=== PATIENT | female | born 1970 | race Caucasian/White ===

== ENCOUNTER 2018-09-21 06:05 | Day surgery (SDC) | payer OTHER ==
[~2018-09-21] VITALS: Ht 152.4 cm; Wt 64.4 kg
[~2018-09-21 06:05] MED LIST: ALEV1TAB PO; ALEV220C2 PO; LR 1,000 ML IV ONE
[2018-09-21] MEDS ORDERED: MIDAZOLAM INJ 2 MG/2 ML VIAL (J2250) As Ordered ONE (06:58)
[2018-09-21] MEDS ORDERED: fentaNYL 100 MCG/2 ML INJECTION (J3010) As Ordered ONE ×2 (06:58→07:15)
[2018-09-21] MEDS ORDERED: BUPIVACAINE HCL 0.25% 30 ML VIAL As Ordered ONE (07:05)
[2018-09-21] MEDS: MIDAZOLAM INJ 2 MG/2 ML VIAL (J2250) IV SCH ×2 (07:13→07:29)
[2018-09-21] MEDS: fentaNYL 100 MCG/2 ML INJECTION (J3010) IV SCH ×2 (07:13→07:29)
[2018-09-21] MEDS ORDERED: LIDOCAINE 1% MDV 20ML VIAL As Ordered ONE (07:14)
[2018-09-21] MEDS ORDERED: METOCLOPRAMIDE INJ 10MG/2ML VIAL (J2765) As Ordered ONE ×2 (07:15→09:38)
[2018-09-21] MEDS ORDERED: LIDOCAINE 2% INJ 100 MG/5 ML SDV (FOR ANES.) As Ordered ONE (07:15)
[2018-09-21] MEDS ORDERED: ONDANSETRON 4MG/2ML VIAL (J2405) As Ordered ONE (07:15)
[2018-09-21] MEDS ORDERED: EPINEPHrine 1MG/ML INJ 30ML MD-VIAL As Ordered ONE (07:15)
[2018-09-21] MEDS ORDERED: PROPOFOL 200 MG/20 ML VIAL As Ordered ONE (07:15)
[2018-09-21] MEDS ORDERED: ROCURONIUM BROMIDE 50 MG/5 ML VIAL As Ordered ONE (07:15)
[2018-09-21] MEDS ORDERED: fentaNYL 100 MCG/2 ML INJECTION (J3010) IV ONE (07:45)
[2018-09-21] MEDS ORDERED: MIDAZOLAM INJ 2 MG/2 ML VIAL (J2250) IV ONE (07:45)
[2018-09-21] MEDS ORDERED: fentaNYL 100 MCG/2 ML INJECTION (J3010) IV PRN (09:30)
[2018-09-21] MEDS ORDERED: ACETAMINOPHEN TAB 650MG DOSE (2X325MG) PO PRN (09:30)
[2018-09-21] MEDS ORDERED: LR 1,000 ML IV SCH (09:30)
[2018-09-21] MEDS ORDERED: PERCOCET 5MG/325MG TAB PO PRN (09:45)
[2018-09-21] MEDS ORDERED: ONDANSETRON 4MG/2ML VIAL (J2405) IV PRN (09:45)
[2018-09-21] MEDS ORDERED: MORPHINE 4 MG/ML 1ML VIAL/SYRINGE (J2270) IV PRN (09:45)
[2018-09-21] MEDS ORDERED: METOCLOPRAMIDE INJ 10MG/2ML VIAL (J2765) IV SCH (10:00)
--- NOTE | 2018-09-21 11:04 | RO ---
DATE OF PROCEDURE: 09/21/2018 PREOPERATIVE DIAGNOSIS: Right shoulder bursitis plus calcific tendinitis. POSTOPERATIVE DIAGNOSIS: Right shoulder bursitis plus calcific tendinitis. PLANNED PROCEDURE: Right shoulder arthroscopy, subacromial decompression and debridement of calcific deposits. PROCEDURE PERFORMED: Right shoulder arthroscopy, subacromial decompression and debridement of calcific deposits. SURGEON: Marc Fabian MD ENERGY PROJECTS LEAD: Penny Najera PA-C ANESTHESIA: Block plus general anesthetic. JOURNEYMAN SHEET METAL WORKER: Dr. Toledo PREOPERATIVE PREAMBLE: This 47-year-old female had tried a number of nonoperative therapies including physiotherapy, strengthening, oral antiinflammatories and subacromial injection. She did derive a little bit of relief from the subacromial injection, but this went away, and so we discussed the pros, cons, risks, and benefits of proceeding with arthroscopic surgery. She wanted to go ahead and I had examined her in the preanesthetic unit. She still had full range of motion and good strength, but remained painful along the lateral aspect of her arm. I marked the arm preoperatively and the patient had a block. OPERATIVE PREAMBLE: The patient was brought to the operating room theater, placed supine on the beach chair table positioner. General anesthesia was induced. 2 grams of IV Ancef was administered prior to the start of the case. They were set up at a 45 degree angle. The right upper extremity was prepped and draped in the usual sterile fashion with the aid of a Spider arm positioner. This was allowed to thoroughly dry for 3 minutes. A preoperative time out was performed. The surgical site was positively identified and the patient identified as well. I started by infiltrating about 6 mL in the posterolateral aspect of the shoulder. Posterolateral portal was established. Scope was introduced intra-articularly. I performed a full diagnostic arthroscopy. Cartilage on the glenoid and humeral head appeared normal. No cartilage defects and no fraying. The labrum was normal. Biceps was intact. Root appeared stable. No synovitis in the biceps tendon. Subscapularis appeared normal. No evidence of partial thickness tearing. It was stable to probing. No obvious undersurface tear of the cuff or fraying. Did have a fairly lateral insertion on the humeral head. No obvious intra-articular synovitis. Next, the scope was withdrawn and placed in the subacromial space. The pump pressure was at 50 mm of mercury throughout and each bag did have epinephrine in it. The subacromial space was positively identified and a lateral portal made. The intra-articular portion of the scope did include one anterior portal placed just below the biceps tendon root in the rotator interval. Once I positively identified the subacromial space and made the lateral portal, I then performed a thorough debridement of quite a bit of marked synovitis and bursitis. The subacromial space was quite inflamed. I debrided the undersurface of the anterolateral acromion and identified the acromioclavicular (AC) joint. No obvious evidence of AC joint arthrosis or instability. I used a shaving instrument plus electrocautery. I performed thorough debridement. There was an anterolateral spur of the acromion and so I used a bur to debride that down to a flat surface, approximately a breadths width of about 5-6 mm so that it was parallel with the undersurface of the lateral clavicle. I achieved meticulous hemostasis. I examined the entire rotator cuff all the way down to the lateral gutter and posteriorly. I visualized from posterolateral as well as lateral. There was one small area probably 5 mm x 7 mm where there was some calcified deposits within the infraspinatus/teres minor. I debrided those cautiously. I ensured that I did not cause any cuff tear, but there was some areas to debride. I probed the entire cuff to make sure that there was no partial thickness or full thickness tears. It appeared normal. I examined the coracoacromial (CA) ligament and it was definitely frayed so I removed this with cautery and then shaved away the stump to ensure no impingement. I then thoroughly irrigated the rest of the shoulder and confirmed that again there was no cuff tear and that all of the calcified deposits had been removed. The scope was withdrawn. The wound were closed with subcutaneous #3-0 Monocryl. The wounds were dressed with Steri-Strips, 4 x 8 gauze, and ABD with cloth tape dressing. The patient was placed into an abduction pillow sling. The patient was woken from general anesthetic and transferred off of the operating room table, later transferred to postanesthesia care unit (PACU) in stable condition. All sponge counts, needle counts, instrument counts were correct. There were no complications or excess blood loss associated with the procedure. Plan for the patient is to be discharged home according to day surgery criteria. I will follow them up in three days or if they are doing well in two weeks time. I will let the patient know that everything went well and we will have the sling for comfort and wean out of that in the next 1-2 weeks as she tolerates.
[2018-09-21 11:45] VITALS: BP 117/60
== END 2018-09-21 11:49 | disposition home or self-care (01) ==
LOC: M SDC 06:05
PROVIDERS: ATTEND Orthopaedic Surgery Sports Medicine
DX: M75.31 Calcific tendinitis of right shoulder (principal)
CPT/HCPCS: 29823; 29826; 64415; J0690; J2250; J2405; J2765; J3010

== ENCOUNTER → 2019-06-30 | Outpatient (REF) | payer OTHER ==
[~2019-06-30] MED LIST changes: -LR 1,000 ML IV ONE
== END ==
LOC: M LAB REF 16:37
PROVIDERS: ATTEND Nurse Practitioner Adult Health
DX: N39.46 Mixed incontinence (principal)

== ENCOUNTER → 2020-12-02 | Outpatient (CLI) | payer OTHER ==
[~2020-12-02] MED LIST changes: +MYRB50TA
== END ==
LOC: M LABSMTC 08:13
PROVIDERS: ATTEND Anesthesiology
DX: Z01.812 Encounter for preprocedural laboratory examination (principal); Z11.52 Encounter for screening for COVID-19

== ENCOUNTER 2020-12-07 06:16 | Day surgery (SDC) | payer OTHER ==
[~2020-12-07] VITALS: Ht 152.4 cm; Wt 63.5 kg
[~2020-12-07 06:16] MED LIST changes: +LR 1,000 ML IV ONE
[2020-12-07] MEDS ORDERED: BACITRACIN OINTMENT 30GM TUBE As Ordered ONE (07:20)
[2020-12-07] MEDS ORDERED: LIDOCAINE 2% W/EPINEPHRINE 20ML VIAL **PRES FREE As Ordered ONE (07:20)
[2020-12-07] MEDS ORDERED: fentaNYL 100 MCG/2 ML INJECTION (J3010) As Ordered ONE (07:23)
[2020-12-07] MEDS ORDERED: propofoL 200 MG/20 ML VIAL As Ordered ONE (07:23)
[2020-12-07] MEDS ORDERED: MIDAZOLAM INJ 2MG/2ML VIAL (J2250 PER 1MG) As Ordered ONE (07:23)
[2020-12-07] MEDS ORDERED: SCOPOLAMINE 1MG TRANSDERMAL PATCH TOP ONE (07:30)
[2020-12-07] MEDS ORDERED: LIDOCAINE 2% 100MG/5ML SDV (FOR ANES.) As Ordered ONE (07:37)
[2020-12-07] MEDS ORDERED: dexameTHASONE 4 MG/ML 1ML VIAL (J1100 PER 1MG) As Ordered ONE (07:37)
[2020-12-07] MEDS ORDERED: LACRILUBE (AKWA TEARS) OPHTH OINT 3.5 GM As Ordered ONE (07:51)
[2020-12-07] MEDS ORDERED: ceFAZolin 1GM VIAL (J0690 PER 500MG) As Ordered ONE (07:56)
[2020-12-07] MEDS ORDERED: ONDANSETRON 4MG/2ML VIAL As Ordered ONE (08:07)
[2020-12-07] MEDS ORDERED: ACETAMINOPHEN 1000MG 100ML IV BTL (OFIRMEV) (J0131 PER 10MG) As Ordered ONE (08:19)
--- NOTE | 2020-12-07 08:53 | POST-OPPD ---
Postoperative Procedure Note Date Of Procedure: Dec 07, 2020 PREOPERATIVE DIAGNOSIS: Middle left forehead mass POSTOPERATIVE DIAGNOSIS: same FINDINGS: hard mass, fatty mass. PROCEDURE: Excision left forehead mass. SURGEON: Dr Aguilar ANESTHESIA: General SPECIMENS: forehead mass ESTIMATED BLOOD LOSS: 5 cc REPLACED: none DRAINS: none COMPLICATIONS: none POSTOPERATIVE CONDITION: stable JODI AGUILAR DO Dec 07, 2020 08:53
--- NOTE | 2020-12-07 08:54 | ROOPDOC ---
[facility] Report Of Operation Report of Operation DATE OF PROCEDURE: 12/07/20 PREOPERATIVE DIAGNOSIS: Middle left forehead mass POSTOPERATIVE DIAGNOSIS: same FINDINGS: hard mass, fatty mass. PROCEDURE: Excision left forehead mass. SURGEON: Dr Aguilar ANESTHESIA: General SPECIMENS: forehead mass ESTIMATED BLOOD LOSS: 5 cc REPLACED: none DRAINS: none COMPLICATIONS: none POSTOPERATIVE CONDITION: stable This is a 49 year-old female with palpable mass left forehead. She has intermittent pressure from the mass. Attempt to remove was made previously. It is palpable, sized 1 cm. Slow growing. Patient wishes to have it removed. Risks, benefits, and alternatives discussed with the patient. She is ready to proceed. After obtaining informed consent patient brought into the operating room, placed in supine position, perioperative antibiotics given, sequential stockings placed in the lower calves, general anesthesia induced. She was prepped and draped in the usual sterile fashion. 2% lidocaine with epinephrine was infiltrated in the area. Incision carried out through the most prominent portion of the mass, where the previous incision was in the left middle forehead. Sharp and blunt dissection was done to explore the area. Thick hard scar tissue and fat necrosis appearing mass was identified and removed. Frontalis muscle explored carefully for any additional masses in the area and found none. The mass is completely subcutaneous, not invading surrounding structures or muscle. Hemostasis is obtained using electrocautery. Flaps approximated in layers with 4-0, 5-0 Monocryl sutures. Steri-Strips and pressure dressing applied. Patient extubated in operating room, tolerated procedure well, and transferred to recovery room in stable condition. JODI AGUILAR DO Dec 07, 2020 08:54
[2020-12-07] MEDS ORDERED: fentaNYL 100 MCG/2 ML INJECTION (J3010) IV PRN (09:05)
[2020-12-07] MEDS ORDERED: ONDANSETRON 4MG/2ML VIAL IV PRN (09:05)
[2020-12-07] MEDS ORDERED: LR 1,000 ML IV SCH (09:05)
[2020-12-07] MEDS ORDERED: oxyCODONE 5MG TAB PO PRN (09:05)
[2020-12-07] MEDS ORDERED: KETOROLAC 30 MG/ML 1ML VIAL IV ONE (09:50)
[2020-12-07] MEDS ORDERED: METOCLOPRAMIDE INJ 10MG/2ML VIAL (J2765 PER 1) IV ONE (10:35)
[2020-12-07] MEDS ORDERED: KETO10TAB PO (10:46)
[2020-12-07 11:10] VITALS: BP 123/70
== END 2020-12-07 11:19 | disposition home or self-care (01) ==
LOC: M SDC 06:16
PROVIDERS: ATTEND Plastic Surgery Surgery of the Hand
DX: D17.0 Benign lipomatous neoplasm of skin and subcutaneous tissue of head, face and neck (principal); R32 Unspecified urinary incontinence; H93.11 Tinnitus, right ear; Z88.5 Allergy status to narcotic agent
CPT/HCPCS: 11442; 12051; 88305; J0131; J0690; J1100; J1885; J2250; J2405; J2765; J3010

== ENCOUNTER → 2021-01-09 | Outpatient (REF) | payer OTHER ==
[~2021-01-09] MED LIST changes: +KETO10TAB PO; -LR 1,000 ML IV ONE
== END ==
LOC: M LAB REF 17:14
PROVIDERS: ATTEND Nurse Practitioner Adult Health
DX: R68.2 Dry mouth, unspecified (principal)

== ENCOUNTER 2023-10-21 08:24 | Day surgery (SDC) | payer OTHER ==
[~2023-10-21] VITALS: Ht 152.4 cm; Wt 66.2 kg
[2023-10-21] MEDS: NS 1,000 ML IV ONE (08:56)
[2023-10-21] MEDS ORDERED: LIDOCAINE 2% 100MG/5ML SDV (FOR ANES.) As Ordered ONE (10:20)
[2023-10-21] MEDS ORDERED: propofoL 200 MG/20 ML VIAL As Ordered ONE (10:20)
[2023-10-21 10:46] VITALS: TEMP 97.7
[2023-10-21 11:06] VITALS: BP 123/71; O2SAT 98
== END 2023-10-21 11:12 | disposition home or self-care (01) ==
LOC: M OPP 08:24
PROVIDERS: ATTEND Internal Medicine Gastroenterology
DX: Z12.11 Encounter for screening for malignant neoplasm of colon (principal); D12.6 Benign neoplasm of colon, unspecified; K64.4 Residual hemorrhoidal skin tags; K64.8 Other hemorrhoids; Z88.5 Allergy status to narcotic agent